=== PATIENT | female | born 1980 | race Caucasian/White ===

== ENCOUNTER 2017-05-22 17:16 | Emergency (ER) | payer SELFPAY ==
[2017-05-22] MEDS ORDERED: Azithromycin 250 MG TAB ONE (18:37)
[2017-05-22] MEDS ORDERED: predniSONE 20 MG TAB ONE (18:39)
== END 2017-05-22 18:47 | disposition home or self-care (01) ==
LOC: MADERS 17:16
DX: J02.9 Acute pharyngitis, unspecified (principal); F17.210 Nicotine dependence, cigarettes, uncomplicated; Z79.891 Long term (current) use of opiate analgesic; Z79.899 Other long term (current) drug therapy
CPT/HCPCS: 87081; 87430; 99283; J7506

== ENCOUNTER 2017-05-25 17:43 | Emergency (ER) | payer SELFPAY ==
[~2017-05-25 17:43] MED LIST: Sodium Chloride 0.9% 1,000 ML BAG ONE; Sodium Chloride 0.9% 100 ML BAG ONE
[2017-05-25 18:06] LABS: Bilirubin Negative (Negative); Blood, Urine Trace (Negative); Glucose, Urine (Dipstick) Negative (Negative); Leukocyte Negative (Negative); Nitrite Negative (Negative); Protein, Urine (Dipstick) Negative (Neg-Trace); Specific Gravity, Urine 1.025 (1.005-1.030); Urobilinogen 0.2 mg/dL (0.2-1.0)
[2017-05-25 18:10] LABS: Clarity Hazy (Clear)
[2017-05-25 18:11] LABS: Bacteria/HPF Rare-Few HPF (None Seen); RBC/HPF 0-3 HPF (0-3); WBC/HPF None Seen HPF (0-3)
[2017-05-25 18:12] LABS: Pregnancy Test - Urine (BHCG) Negative (Negative); Pregu Control Background? CLEAR/WHITE (CLR/WHITE); Pregu Control Bar Appear? YES (CONTROL BAR); Specific Gravity 1.025 (1.002-1.036)
[2017-05-25] MEDS ORDERED: Famotidine In NaCl 20 mg/50 ml Premix Bag ONE (18:16)
[2017-05-25] MEDS ORDERED: Ondansetron HCl/PF 4 MG/2 ML Vial ONE (18:16)
[2017-05-25] MEDS ORDERED: Ketorolac Tromethamine 30 MG/ML VIAL ONE (18:16)
[2017-05-25 18:56] LABS: ALT (SGPT) 43 U/L (8-55); AST (SGOT) 24 U/L (5-34); Albumin 4.3 g/dL (3.5-5.0); Alkaline Phosphatase 57 U/L (40-150); Anion Gap 14 mmol/L (10-20); BUN (Urea Nitrogen) 16 mg/dL (7.0-18.7); Bilirubin, Total Less than 0.3 mg/dL (0.2-1.2); Calc. Creatinine Clearance 0 mL/min (70-130); Calcium 9.4 mg/dL (7.8-10.44); Carbon Dioxide 23 mmol/L (22-29); Chloride 105 mmol/L (98-107); Estimated GFR-MDRD 85; Globulin 3.3 g/dL (2.4-3.5); Glucose 125 mg/dL (70-105); Lipase 5 U/L (8-78); Potassium 4.1 mmol/L (3.5-5.1); Protein, Total 7.6 g/dL (6.0-8.3); Sodium 138 mmol/L (136-145)
[2017-05-25 19:00] LABS: Band 5 % (5-11); Hemoglobin 13.3 g/dL (12.0-16.0); Lymphocytes 5 % (21-51); MDiff Complete? YES; Mean Corpuscular HGB CONC 35.5 g/dL (32.0-36.0); Mean Corpuscular Hemoglobin 31.8 pg (27.0-31.0); Mean Corpuscular Volume 89.4 fl (81.0-99.0); Mean Platelet Volume 9.4 fL (7.4-10.4); Monocytes 2 % (0-10); Neutrophil 88 % (42-75); PLT Morphology Comment Appears Adequate; Platelet Count 280 thou/uL (130-400); RBC Distribution Width 11.1 % (11.5-14.5); White Blood Cell (WBC) Count 20.5 thou/uL (4.8-10.8)
[2017-05-25] MEDS ORDERED: cefTRIAXone\\ROCEPHIN 2 GM VIAL ONE (19:23)
[2017-05-25] MEDS ORDERED: SUGAMMADEX SODIUM 500 MG/5 ML VIAL ONE (19:23)
--- NOTE | 2017-05-25 19:56 | RAD ---
CHEST ONE VIEW ABDOMEN TWO VIEWS 05/25/17 HISTORY: Chest and abdomen pain. FINDINGS: The cardiac silhouette is magnified by projection. Pulmonary vasculature is unremarkable. There is no confluent air space consolidation or evidence of free subdiaphragmatic gas. Gas and stool are apparent throughout the colon and rectum. There are no differential air fluid level s or evidence of free intraperitoneal gas. No metallic foreign bodies are apparent. IMPRESSION: No significant abnormalities are demonstrated. POS: LINDA
[2017-05-25] MEDS ORDERED: Morphine 4 MG/ML VIAL ONE (20:25)
== END 2017-05-25 20:41 | disposition short-term general hospital (02) ==
LOC: MADERS 17:43
DX: R10.11 Right upper quadrant pain (principal); R10.13 Epigastric pain; D72.829 Elevated white blood cell count, unspecified; F17.210 Nicotine dependence, cigarettes, uncomplicated; Z79.52 Long term (current) use of systemic steroids
CPT/HCPCS: 74022; 80053; 81003; 81015; 81025; 83690; 85025; 87086; 96365; 96366; 96368; 96375; J0696; J1885; J2270; J2405; J7050

== ENCOUNTER 2017-07-20 20:30 | Emergency (ER) | payer SELFPAY ==
[2017-07-20] MEDS ORDERED: Benzonatate 100 MG CAP ONE (20:59)
== END 2017-07-20 21:16 | disposition home or self-care (01) ==
LOC: MADERS 20:30
DX: J06.9 Acute upper respiratory infection, unspecified (principal); F17.210 Nicotine dependence, cigarettes, uncomplicated
CPT/HCPCS: 99283

== ENCOUNTER 2017-12-06 13:03 | Emergency (ER) | payer SELFPAY ==
[~2017-12-06 13:03] MED LIST changes: -Sodium Chloride 0.9% 1,000 ML BAG ONE; -Sodium Chloride 0.9% 100 ML BAG ONE; +Sodium Chloride 0.9% 500 ML BAG ONE
[2017-12-06] MEDS ORDERED: Ondansetron ODT 4 MG TAB ONE (13:18)
[2017-12-06] MEDS ORDERED: Pantoprazole 40 MG VIAL ONE (13:34)
[2017-12-06 13:39] LABS: #Basophils 0.1 thou/uL (0.0-0.2); #Eosinphils 0.1 thou/uL (0.0-0.7); #Lymphocytes 1.9 thou/uL (1.20-3.40); #Monocytes 0.5 thou/uL (0.11-0.59); #Neutrophils 7.2 thou/uL (1.40-6.50); %Basophils 0.6 % (0.0-1.0); %Eosinophils 1.1 % (0.0-10.0); %Lymphocytes 19.8 % (21.0-51.0); %Monocytes 5.2 % (0.0-10.0); %Neutrophils 73.3 % (42.0-75.0); Hemoglobin 12.8 g/dL (12.0-16.0); Mean Corpuscular Hemoglobin 28.1 pg (27.0-31.0); Mean Corpuscular Volume 85.1 fl (81.0-99.0); Mean Platelet Volume 8.6 fL (7.4-10.4); Platelet Count 269 thou/uL (130-400); RBC Distribution Width 12.1 % (11.5-14.5); Red Blood Cell (RBC) Count 4.57 mill/uL (4.20-5.40); White Blood Cell (WBC) Count 9.8 thou/uL (4.8-10.8)
[2017-12-06 13:58] LABS: ALT (SGPT) 36 U/L (8-55); AST (SGOT) 76 U/L (5-34); Albumin 4.8 g/dL (3.5-5.0); Alkaline Phosphatase 71 U/L (40-150); Anion Gap 16 mmol/L (10-20); BUN (Urea Nitrogen) 17 mg/dL (7.0-18.7); Bilirubin, Total 0.8 mg/dL (0.2-1.2); Calc. Creatinine Clearance 0 mL/min (70-130); Carbon Dioxide 24 mmol/L (22-29); Chloride 102 mmol/L (98-107); Estimated GFR-MDRD 69; Globulin 3.1 g/dL (2.4-3.5); Glucose 106 mg/dL (70-105); Lipase 18 U/L (8-78); Potassium 3.9 mmol/L (3.5-5.1); Protein, Total 7.9 g/dL (6.0-8.3); Sodium 138 mmol/L (136-145)
--- NOTE | 2017-12-06 14:16 | RAD ---
ABDOMINAL SURVEY WITH UPRIGHT CHEST: Indication: Abdominal pain. FINDINGS: Lung ayon are clear. Heart and mediastinum are unremarkable. Bowel gas pattern is unremarkable. Sca ttered stool and gas seen throughout the colon. Small bowel gas pattern is within normal range. Post cholecystectomy clips are noted. No evidence of free air or soft tissue mass. There is deformity of the right femoral head with loss of symmetric contour. No other secondary signs to suggest AVN, however, recommend clinical correlation and consider MRI of right hip as indicated. IMPRESSION: 1. No acute abdominal or lung process seen by plain film screening. 2. Abnormal contour of the right femoral head. This is stable when compared to exam of 05-25-17. Find ings could potentially represent old fracture. Recommend clinical correlation. POS: ENRIQUETA
[2017-12-06 14:37] LABS: Bilirubin Negative (Negative); Blood, Urine Negative (Negative); Clarity Hazy (Clear); Glucose, Urine (Dipstick) Negative (Negative); Leukocyte Negative (Negative); Nitrite Negative (Negative); Pregnancy Test - Urine (BHCG) Negative (Negative); Pregu Control Background? CLEAR/WHITE (CLR/WHITE); Pregu Control Bar Appear? YES (CONTROL BAR); Protein, Urine (Dipstick) Trace mg/dL (Neg-Trace); Specific Gravity 1.015 (1.002-1.036); Specific Gravity, Urine 1.015 (1.005-1.030)
[2017-12-06] MEDS ORDERED: Mag-Al Plus 1200 MG/1200 MG/120 MG/30 ML UDCUP ONE (14:50)
[2017-12-06] MEDS ORDERED: Dicyclomine 10 MG CAP ONE (14:51)
== END 2017-12-06 15:37 | disposition home or self-care (01) ==
LOC: MADERS 13:03
DX: K29.70 Gastritis, unspecified, without bleeding (principal); F17.210 Nicotine dependence, cigarettes, uncomplicated; Z85.41 Personal history of malignant neoplasm of cervix uteri
CPT/HCPCS: 74022; 80053; 81003; 81025; 83605; 83690; 85025; 96361; 96374; C9113; J7050; Q0162